=== PATIENT | female | born 1960 | race Caucasian/White ===

== ENCOUNTER 2018-05-23 08:44 | Day surgery (SDC) | payer OTHER ==
[~2018-05-23] VITALS: Ht 154.9 cm; Wt 86.0 kg
[~2018-05-23 08:44] MED LIST: ALLEGRA ALLERG180 MG PO; DIOVAN160 MG PO; LOPREEZA 0.5 M1 EACH PO
[2018-05-23] MEDS ORDERED: TYLENOL EXTRA500 MG PO (09:22)
[2018-05-23 09:34] VITALS: BP 138/76
[2018-05-23 14:13] VITALS: BP 193/81
[2018-05-23 14:40] VITALS: BP 164/76
[2018-05-23 15:10] VITALS: BP 160/70
[2018-05-23 16:00] VITALS: BP 137/74
== END 2018-05-23 16:15 | disposition home or self-care (01) ==
LOC: SDC 08:44
DX: M20.11 Hallux valgus (acquired), right foot (principal); M20.41 Other hammer toe(s) (acquired), right foot; M89.9 Disorder of bone, unspecified; M19.071 Primary osteoarthritis, right ankle and foot; I10 Essential (primary) hypertension; Z88.0 Allergy status to penicillin; Z88.1 Allergy status to other antibiotic agents; R94.31 Abnormal electrocardiogram [ECG] [EKG]
CPT/HCPCS: 73630; C1713; C1769; J0131; J1170; J1885; J2250; J2405; J3010; J7120; Q0175; S0020